=== PATIENT | female | born 1995 | race African-American/Black ===

== ENCOUNTER 2016-09-20 09:51 | Emergency (ER) | payer MEDICAID ==
[~2016-09-20] VITALS: Ht 177.8 cm; Wt 73.0 kg
[2016-09-20] MEDS ORDERED: HYDR25TA PO (10:06)
[2016-09-20] MEDS ORDERED: MAGNESIUM/ALUMINUM HYDROXIDE/SIMETHICONE 30ML UDC PO STA (10:37)
[2016-09-20] MEDS ORDERED: VISCOUS LIDOCAINE 2% 15 ML UDC MM ONE (10:45)
[2016-09-20 16:01] VITALS: BP 154/104
== END 2016-09-20 16:21 | disposition home or self-care (01) ==
LOC: ER 11:30
DX: K21.9 Gastro-esophageal reflux disease without esophagitis (principal); I10 Essential (primary) hypertension; E11.9 Type 2 diabetes mellitus without complications; R07.9 Chest pain, unspecified; R05 Cough; Z88.0 Allergy status to penicillin; Z88.6 Allergy status to analgesic agent; Z91.013 Allergy to seafood
CPT/HCPCS: 71010; 81025; 93005; 99284; Z7610

== ENCOUNTER 2017-01-02 09:50 | Emergency (ER) | payer MEDICAID ==
[~2017-01-02] VITALS: Ht 177.8 cm; Wt 82.0 kg
[~2017-01-02 09:50] MED LIST: HYDR25TA PO
[2017-01-02 10:36] VITALS: BP 168/117
[2017-01-02] MEDS ORDERED: ACETAMINOPHEN 325MG TABLET PO ONE (12:45)
== END 2017-01-02 13:33 | disposition home or self-care (01) ==
LOC: ER 11:16
DX: K04.7 Periapical abscess without sinus (principal); J02.9 Acute pharyngitis, unspecified; I10 Essential (primary) hypertension; R73.03 Prediabetes; Z88.0 Allergy status to penicillin; Z88.6 Allergy status to analgesic agent; Z91.013 Allergy to seafood
CPT/HCPCS: 99283